=== PATIENT | female | born 1955 | race Caucasian/White ===

== ENCOUNTER 2019-09-19 12:17 | Emergency (ER) | payer MEDICARE, SELFPAY ==
[2019-09-19 12:25] VITALS: BP 145/82; PULSE 65; RESP 16; TEMP 36.6; O2SAT 98
--- NOTE | 2019-09-19 12:36 | ED.GENADULT ---
HPI - General Adult General Chief complaint: Skin/Abscess/Foreign Body Stated complaint: splinter in right foot and poss in eye Time Seen by Provider: 09/19/19 12:36 Source: patient and RN notes reviewed Mode of arrival: ambulatory Limitations: no limitations History of Present Illness HPI narrative: 63-year-old female presents with complaints of sensation of foreign body in left eye for the past 3 days. Deidre says she was mowing her lawn with sunglasses on and believes she might have gotten something in LT eye. Flushed with human tears with some relief. History of Cataract to LT eye awaiting to have surgery currently. No redness or no drainage. Denies worsening of symptoms since Friday when they initially started. No exacerbating factors. No relieving factors. Denies blurred vision, double vision, or pain of eye with movement. Denies fever or chills. Complaints of RT [id number] (below baby toe (5th toe) pain, swelling, and redness for the past 3 days. Deidre says she was mowing her lawn when she stepped on a spikey gum ball from a sweet gum tree. Her and her daughter removed a splinter from foot, soaked foot in bleach water, and applied PRID with litte relief. Symptoms increased over the last 24 hours with redness and swelling. Hurts to bear weight. No radiation of pain. No numbness, tingling, or loss of mobility. Exacerbating factor applying weight. Denies inability to bear weight. Denies suspect foreign body. Unknown last tetanus vaccine, will up -date- today. Denies fever or chills. Denies diarrhea, abdominal pain, nausea, and vomiting. Tolerating po intake well. Denies headaches, weakness, fatigue, myalgia. Denies chest pain or dyspnea. Denies cough, rhinorrhea, congestion, and sore throat. Denies recent traveling. Denies concern for COVID-19 or exposures been home since [id number] order except for essential household needs and return home. Remains active. Deidre says she was at the hospital recental and was tested without being notified of results. Some parts of this dictation were generated by voice recognition software and may contain typographical and/or grammatical inaccuracies. Severity scale (1-10): 9 Related Data Home Medications Medication Instructions Recorded Confirmed sofiapril 10 mg PO DAILY 09/19/19 09/19/19 tramadol 50 mg PO Q6H PRN 09/19/19 09/19/19 Allergies Allergy/AdvReac Type Severity Reaction Status Date / Time No Known Allergies Allergy Verified 09/19/19 12:36 Review of Systems Review of Systems: Narrative: CONSTITUTIONAL: Denies fever, chills, sweats. EYES: Denies visual changes. Complains of RT eye redness and foreign body sensation. Denies discharge. ENT: Denies rhinorrhea, congestion, sore throat, otalgia. CARDIOVASCULAR: Denies chest pain, palpitations, edema. RESPIRATORY: Denies dyspnea, wheezing, cough. GASTROINTESTINAL: Denies abdominal pain, nausea, vomiting, diarrhea. GENITOURINARY: Denies dysuria, hematuria, abnormal discharge. SKIN: Denies rash or itching. MUSCULOSKELETAL: Denies acute back pain, joint pain, or myalgia. Complains of swelling, redness, pain to lateral-dorsal and lateral-plantar right foot. NEUROLOGIC: Denies numbness or focal weakness. PSYCHIATRIC: Denies anxiety or depression. All systems reviewed & are unremarkable except as noted in HPI and below. [facility] Past Medical History Medical History (Updated 09/19/19 @ 13:50 by TACO Miles) Bronchitis Cataract Hypertension Osteoarthritis Surgical History Surgical History (Updated 09/19/19 @ 13:50 by TACO Miles) History of carpal tunnel surgery Bilateral History of cataract surgery RT awaiting LT to be done per Deidre History of hysterectomy Family History Family History (Updated 09/19/19 @ 13:52 by TACO Miles) Father Hypertension Mother Alive and well Sibling Hypertension Social History Social History (Up
[2019-09-19] MEDS: TETANUS,DIPHTHERIA,AC PERTUSSIS ADULT 0.5 ML (ADACEL) IM (13:00)
== END 2019-09-19 13:20 | disposition home or self-care (01) ==
PROVIDERS: Emergency Provider Nurse Practitioner Family; PCP Internal Medicine
DX: L03.115 Cellulitis of right lower limb (principal); H57.12 Ocular pain, left eye; Z23 Encounter for immunization; H26.9 Unspecified cataract; M19.90 Unspecified osteoarthritis, unspecified site; I10 Essential (primary) hypertension; F17.220 Nicotine dependence, chewing tobacco, uncomplicated
CPT/HCPCS: 90471; 90715; 99213; A9270; G0463